=== PATIENT | male | born 1960 | race Caucasian/White ===

== ENCOUNTER 2021-02-09 17:55 | Emergency (ER) | payer SELFPAY ==
[~2021-02-09] VITALS: Ht 175.3 cm; Wt 117.9 kg
[~2021-02-09 17:55] MED LIST: BP MED; KETO10 PO; OXYACE5T PO
[2021-02-09] MEDS ORDERED: AMLODIPINE-BEN1 EAC2 PO (19:22)
== END 2021-02-09 22:14 | disposition left against medical advice (07) ==
LOC: ER 17:55
DX: R06.02 Shortness of breath (principal); Z53.21 Procedure and treatment not carried out due to patient leaving prior to being seen by health care provider
CPT/HCPCS: 99282